=== PATIENT | female | born 1990 | race Caucasian/White ===

== ENCOUNTER 2016-09-23 10:21 | Emergency (ER) | payer MEDICAID, OTHER ==
[~2016-09-23] VITALS: Ht 157.5 cm; Wt 125.0 kg
[~2016-09-23 10:21] MED LIST: PERC5TAB12 PO
[2016-09-23 10:23] VITALS: BP 115/76; PULSE 76; RESP 20; TEMP 97.7; O2SAT 100
[2016-09-23 10:30] VITALS: BP 115/76; PULSE 76; RESP 20; TEMP 97.7; O2SAT 100
--- NOTE | 2016-09-23 10:36 | PD ---
HPI Chief Complaint: Cold / Flu Symptoms Time Seen by Provider: 10:30 Travel History International Travel<30 days: No Contact w/Intl Traveler<30days: No Traveled to known affect area: No History of Present Illness HPI This is a 25-year-old female who is but doesn't know how far along who presents to the emergency department with nonproductive cough, rhinorrhea, not feeling well for 2-3 days feeling like she has a cold, and when she went to work today she felt like she was going to pass out and got dizzy so she came to the emergency department. Currently she continues to feel somewhat lightheaded. She denies any vaginal bleeding or abdominal pain. PFSH Past Medical History Cancer: No Cardiovascular Problems: No Diminished Hearing: No Endocrine: No Genitourinary: No Immune Disorder: No Musculoskeletal: Yes Neurologic: Yes Psychiatric: No Reproductive: No Respiratory: No Immunizations Current: Yes Migraines: Yes ?: LMP: 05/2016 : 2 Para: 1 Miscarriage: 1 : 0 Social History Alcohol Use: No Tobacco Use: No Substance Use: No Allergies-Medications (Allergen,Severity, Reaction): Coded Allergies: Sulfa (Verified Allergy, Intermediate, Hives, 09/23/16) Uncoded Allergies: CONTROL PILL (Allergy, Mild, RASH, 07/02/12) Reported Meds & Prescriptions Reported Meds & Active Scripts Active No Active Prescriptions or Reported Medications Review of Systems Except as stated in HPI: all other systems reviewed are Neg Physical Exam Narrative GENERAL: Well-nourished, well-developed patient. SKIN: Warm and dry. HEAD: Normocephalic. EYES: No scleral icterus. No injection or drainage. ENT: Rhinorrhea, no posterior pharyngeal erythema or exudates. NECK: Supple, trachea midline. CARDIOVASCULAR: Regular rate and rhythm without murmurs. RESPIRATORY: Breath sounds equal bilaterally. No accessory muscle use. GASTROINTESTINAL: Abdomen soft, non-tender, nondistended. MUSCULOSKELETAL: No cyanosis, or edema. Data Data Last Documented VS Vital Signs Date Time Temp Pulse Resp B/P Pulse Ox O2 Delivery O2 Flow Rate FiO2 09/23/16 10:35 76 20 100 09/23/16 10:30 97.7 115/76 09/23/16 10:23 Room Air Orders Complete Blood Count With Diff (09/23/16 10:34) Basic Metabolic Panel (Bmp) (09/23/16 10:34) ^ Insert Iv (09/23/16 10:34) Sodium Chlor 0.9% 1000 Ml Inj (Ns 1000 M (09/23/16 10:45) Beta Hcg (Quant/Titer) (09/23/16 10:34) Electrocardiogram (09/23/16 ) Ed Poc Ultrasound (09/23/16 10:36) Labs Laboratory Tests Test 09/23/16 10:41 White Blood Count 7.9 TH/MM3 Red Blood Count 4.68 MIL/MM3 Hemoglobin 12.8 GM/DL Hematocrit 38.6 % Mean Corpuscular Volume 82.5 FL Mean Corpuscular Hemoglobin 27.3 PG Mean Corpuscular Hemoglobin 33.0 % Concent Red Cell Distribution Width 13.8 % Platelet Count 289 TH/MM3 Mean Platelet Volume 7.8 FL Neutrophils (%) (Auto) 63.3 % Lymphocytes (%) (Auto) 24.2 % Monocytes (%) (Auto) 8.4 % Eosinophils (%) (Auto) 3.6 % Basophils (%) (Auto) 0.5 % Neutrophils # (Auto) 5.0 TH/MM3 Lymphocytes # (Auto) 1.9 TH/MM3 Monocytes # (Auto) 0.7 TH/MM3 Eosinophils # (Auto) 0.3 TH/MM3 Basophils # (Auto) 0.0 TH/MM3 CBC Comment DIFF FINAL Differential Comment Sodium Level 136 MEQ/L Potassium Level 3.6 MEQ/L Chloride Level 102 MEQ/L Carbon Dioxide Level 28.6 MEQ/L Anion Gap 5 MEQ/L Blood Urea Nitrogen 7 MG/DL Creatinine 0.60 MG/DL Estimat Glomerular Filtration 121 ML/MIN Rate Random Glucose 85 MG/DL Calcium Level 8.9 MG/DL Human Chorionic Gonadotropin, [address] MIU/ML Quant MDM Medical Decision Making Medical Screen Exam Complete: Yes Emergency Medical Condition: Yes Interpretation(s) Afebrile, no tachycardia, normotensive No leukocytosis Electrolytes within normal limits HCG is 70,000 Differential Diagnosis Ectopic , intrauterine , dehydration, viral syndrome Narrative Course This is a 25-year-old female who presents to the emergency department with dizziness and lightheadedness in the setting of upper respiratory symptoms. Patient is nontoxic appearing. She was placed on a monitor and labs were obtained. Labs were all reassuring. She was given IV hydration. Bedside ultrasound confirms an intrauterine with a normal heart rate. Patient was prescribed Mucinex and ipratropium nasal spray for cold symptoms and told to follow up with an outpatient logistical engineer. Procedures Procedure Narrative Pelvic ultrasound: Intrauterine with a heart rate of 167 was identified Diagnosis Primary Impression: Viral upper respiratory infection Additional Impression: Qualified Code: Z3A.01 - Less than 8 weeks gestation of Patient Instructions: General Instructions Additional Instructions: If you develop severe abdominal pain, vaginal bleeding, lightheadedness or dizziness return to the emergency room. Med/Other Pt SpecificInfo: Prescription(s) given Scripts Without A W/ Fe Fumar (Pnv-Dha 27-0.6-0.4-300 mg)1 Cap Cap1 Tab PO DAILY 30 Days Prov:Guillermina Montgomery MD 09/23/16 Guaifenesin ER 12 HR (Mucinex ER 12 HR)600 Mg [id number] Mg PO BID #20 TAB Ref 0 Prov:Guillermina Montgomery MD 09/23/16 Ipratropium Nasal 0.06% Spray1 [place] EACH NARE TID #1 BOTTLE Ref 0 Prov:Guillermina Montgomery MD 09/23/16 Disposition: 01 DISCHARGE HOME Condition: Stable Guillermina Montgomery MD Sep 23, 2016 10:36
[2016-09-23] MEDS ORDERED: SODIUM CHLOR 0.9% 1000 ML INJ 1,000 ML IV ONE (10:45)
[2016-09-23 10:52] LABS: BASOPHIL % 0.5 % (0.0-2.0); EOSINOPHIL # 0.3 TH/MM3 (0-0.4); EOSINOPHIL % 3.6 % (0.0-4.0); HEMATOCRIT 38.6 % (35.0-46.0); HEMO FLAGS DIFF FINAL; LYMPH % 24.2 % (9.0-44.0); LYMPHOCYTE # 1.9 TH/MM3 (1.0-4.8); MEAN CELL VOLUME 82.5 FL (80.0-100.0); MEAN CORPUSCULAR HEMOGLOBIN 27.3 PG (27.0-34.0); MONO % 8.4 % (0.0-8.0); NEUT % 63.3 % (16.0-70.0); PLATELET COUNT 289 TH/MM3 (150-450); RED BLOOD COUNT 4.68 MIL/MM3 (4.00-5.30); RED CELL DISTRIBUTION WIDTH 13.8 % (11.6-17.2); WHITE BLOOD COUNT 7.9 TH/MM3 (4.0-11.0)
[2016-09-23 11:09] LABS: BICARBONATE 28.6 MEQ/L (21.0-32.0); POTASSIUM 3.6 MEQ/L (3.5-5.1)
[2016-09-23] MEDS ORDERED: PNV-CAP PO (11:31)
[2016-09-23] MEDS ORDERED: IPRA0.06 EACH NARE (11:31)
[2016-09-23] MEDS ORDERED: MUCI600T PO (11:31)
--- NOTE | 2016-09-23 19:17 | EKG ---
Date Performed: 09/23/2016 Time Performed: 10:47:05 PTAGE: 25 years EKG: Sinus rhythm NORMAL ECG NO PREVIOUS TRACING DOCTOR: Db Shrestha Interpretating Date/Time 09/23/2016 19:15:22
== END 2016-09-23 12:01 | disposition home or self-care (01) ==
LOC: NEPE 10:21
DX: O26.891 Other specified pregnancy related conditions, first trimester (principal); J06.9 Acute upper respiratory infection, unspecified; B97.89 Other viral agents as the cause of diseases classified elsewhere; R05 Cough; R42 Dizziness and giddiness; Z87.39 Personal history of other diseases of the musculoskeletal system and connective tissue; Z86.69 Personal history of other diseases of the nervous system and sense organs; Z3A.01 Less than 8 weeks gestation of pregnancy
CPT/HCPCS: 80048; 84702; 85025; 93005; 96360; 99283; J7030

== ENCOUNTER 2016-11-07 22:34 | Emergency (ER) | payer MEDICAID ==
[~2016-11-07] VITALS: Ht 157.5 cm; Wt 122.0 kg
[~2016-11-07 22:34] MED LIST changes: +IPRA0.06 EACH NARE; +MUCI600T PO; -PERC5TAB12 PO; +PNV-CAP PO
[2016-11-07 22:36] VITALS: BP 120/59; PULSE 93; RESP 16; TEMP 98.3; O2SAT 95
[2016-11-07 23:27] LABS: BACTERIA, URINE FEW /hpf; BLOOD, URINE LARGE (NEG); COMMENT (UR) CULTURE INDICATED; CULTURE IF INDICATED CULTURE INDICATED; GLUCOSE,URINE NEG (NEG); KETONE, URINE 40 mg/dL (NEG); MUCUS URINE MOD /lpf (OCC); NITRITE,URINE NEG (NEG); RENAL EPITHELIAL CELLS 19 /hpf; URINE COLOR RED (YELLW/STRAW)
[2016-11-08] MEDS ORDERED: LIDOCAINE HCL 1% 20 ML VIAL INFIL ONE (00:30)
[2016-11-08] MEDS ORDERED: MACR100C2 PO (00:30)
--- NOTE | 2016-11-08 00:35 | PD ---
HPI Chief Complaint: Complaint Time Seen by Provider: 00:30 Travel History International Travel<30 days: No Contact w/Intl Traveler<30days: No Traveled to known affect area: No History of Present Illness HPI 26-year-old white female with a 12 week estimated gestational age IUP presents with a one-day history of increased urinary frequency, dysuria, urgency or hematuria. She denies any back pain. No nausea vomiting. No abdominal pain or pelvic pain. No leakage of fluid or vaginal bleeding. No abnormal discharge. No fever or chills. She states that these are the same symptoms that she has had in the past of urinary tract infections. PFSH Past Medical History Narrative Medical uti Cancer: No Cardiovascular Problems: No Diminished Hearing: No Endocrine: No Gastrointestinal Disorders: Yes Genitourinary: No Immune Disorder: No Musculoskeletal: Yes Neurologic: Yes Psychiatric: No Reproductive: No Respiratory: No Immunizations Current: Yes Migraines: Yes Tetanus Vaccination: < 5 Years (i.) ?: LMP: 12 WEEKS : 2 Para: 1 Miscarriage: 1 : 0 Past Surgical History Narrative Surgical Cholecystectomy Cholecystectomy: Yes Social History Alcohol Use: No Tobacco Use: No Substance Use: No Allergies-Medications (Allergen,Severity, Reaction): Coded Allergies: Sulfa (Verified Allergy, Intermediate, Hives, 11/07/16) Uncoded Allergies: CONTROL PILL (Allergy, Mild, RASH, 07/02/12) Reported Meds & Prescriptions Reported Meds & Active Scripts Active Pnv-Dha 27-0.6-0.4-300 mg ( Without A W/ Fe Fumar) 1 Cap Cap 1 Tab PO DAILY 30 Days Mucinex ER 12 HR (Guaifenesin) 600 Mg Mikhail 600 Mg PO BID Ipratropium Nasal 0.06% Onset 1 Onset EACH NARE TID Review of Systems Except as stated in HPI: all other systems reviewed are Neg Physical Exam Narrative GENERAL: Well-developed, well-nourished in no acute distress. Nontoxic appearing. HEAD: Normocephalic, atraumatic. EYES: Pupils equal round and reactive. Extraocular motions intact. No scleral icterus. No injection or drainage. ENT: TMs clear without erythema. The external auditory canals clear. Nose: clear . Posterior pharynx is pink and moist. No tonsillar edema or exudate. Uvula midline. Airway patent. NECK: Trachea midline.Supple, nontender, moves head freely. No central bony tenderness or spasm. CARDIOVASCULAR: Regular rate and rhythm without murmurs, gallops, or rubs. RESPIRATORY: Clear to auscultation. Breath sounds equal bilaterally. No wheezes , rales, or rhonchi. GASTROINTESTINAL: Abdomen soft, non-tender, nondistended. No hepato-splenomegaly , or palpable masses. No guarding. EXTREMITIES: No clubbing, cyanosis, or edema. No joint tenderness, effusion, or edema noted. BACK: Nontender without deformity or crepitance. No flank tenderness. Data Data Last Documented VS Vital Signs Date Time Temp Pulse Resp B/P Pulse Ox O2 Delivery O2 Flow Rate FiO2 11/07/16 22:36 98.3 93 16 120/59 95 Room Air Orders Urinalysis - C+S If Indicated (11/07/16 22:59) Urine Culture (11/07/16 23:01) Ceftriaxone Inj (Rocephin Inj) (11/08/16 00:30) Lidocaine 1% Inj (Xylocaine 1% Inj) (11/08/16 00:30) Labs Laboratory Tests Test 11/07/16 23:01 Urine Color RED Urine Turbidity CLOUDY Urine pH 6.0 Urine Specific Preston 1.022 Urine Protein 300 mg/dL Urine Glucose (UA) NEG mg/dL Urine Ketones 40 mg/dL Urine Occult Blood LARGE Urine Nitrite NEG Urine Bilirubin NEG Urine Urobilinogen LESS THAN 2.0 MG/DL Urine Leukocyte Esterase LARGE Urine RBC /hpf Urine WBC /hpf Urine WBC Clumps MANY Urine Renal Epithelial Cells 19 /hpf Urine Bacteria FEW /hpf Urine Mucus MOD /lpf Microscopic Urinalysis Comment CULTURE INDICATED MDM Medical Decision Making Medical Screen Exam Complete: Yes Emergency Medical Condition: Yes Medical Record Reviewed: Yes Interpretation(s) Laboratory Tests Test 11/07/16 23:01 Urine Color RED Urine Turbidity CLOUDY Urine pH 6.0 Urine Specific Preston 1.022 Urine Protein 300 mg/dL Urine Glucose (UA) NEG mg/dL Urine Ketones 40 mg/dL Urine Occult Blood LARGE Urine Nitrite NEG Urine Bilirubin NEG Urine Urobilinogen LESS THAN 2.0 MG/DL Urine Leukocyte Esterase LARGE Urine RBC /hpf Urine WBC /hpf Urine WBC Clumps MANY Urine Renal Epithelial Cells 19 /hpf Urine Bacteria FEW /hpf Urine Mucus MOD /lpf Microscopic Urinalysis Comment CULTURE INDICATED Differential Diagnosis Differential diagnoses: Pyelonephritis, UTI, vaginitis Narrative Course Patient is urine is positive for UTI. Patient's given Rocephin 1 g IM. There is no evidence of pyelonephritis at this time. She has an appointment to see her OB doctor for the first visit next week. She is advised to return to the ER over the weekend if any problems develop. This is UTI, Diagnosis Primary Impression: UTI (urinary tract infection) Qualified Code: N30.01 - Acute cystitis with hematuria Additional Impression: Qualified Code: Z3A.12 - 12 weeks gestation of Patient Instructions: General Instructions Additional Instructions: Rest. Increase fluids. Macrobid. Follow-up with OB doctor next week as scheduled. Return to the ER for any problems. Med/Other Pt SpecificInfo: Prescription(s) given Scripts Nitrofurantoin Monohydrate Macrocrystals (Macrobid)100 Mg [id number] Mg PO BID #20 CAP Prov:Carmita Ragland MD 11/08/16 Disposition: 01 DISCHARGE HOME Condition: Stable Myke Rojas Nov 08, 2016 00:35
[2016-11-08] MEDS ORDERED: LIDOCAINE HCL 1% 50 ML VIAL INFIL ONE (01:00)
== END 2016-11-08 01:21 | disposition home or self-care (01) ==
LOC: NEPB 22:34
DX: O23.11 Infections of bladder in pregnancy, first trimester (principal); B96.20 Unspecified Escherichia coli [E. coli] as the cause of diseases classified elsewhere; Z3A.12 12 weeks gestation of pregnancy
CPT/HCPCS: 81001; 87077; 87086; 87186; 96372; 99283; J0696

== ENCOUNTER 2016-12-03 18:13 | Emergency (ER) | payer MEDICAID ==
[~2016-12-03] VITALS: Ht 157.5 cm; Wt 120.0 kg
[~2016-12-03 18:13] MED LIST changes: +MACR100C2 PO
[2016-12-03] MEDS ORDERED: AMOXICILLIN/CLAVULANATE K 875 MG TAB PO ONE (19:30)
[2016-12-03] MEDS ORDERED: ACETAMINOPHEN 500 MG CPLT PO ONE (19:30)
--- NOTE | 2016-12-03 19:35 | PD ---
HPI Chief Complaint: Bite or Sting Time Seen by Provider: 19:31 Travel History International Travel<30 days: No Contact w/Intl Traveler<30days: No Traveled to known affect area: No History of Present Illness HPI Patient comes in complaining of dog bite it is causing pain to the right hand that occurred shortly prior to arrival. Patient states the dog was one of her neighbors that was chained up and managed to bite her right hand anyway. Patient reports her tetanus shot is up-to-date. Patient is uncertain of the dog 's vaccination status as she does not know the neighbors that own the dog. Patient states that she put Neosporin on her hand prior to coming to the emergency department. Denies anything else for this. Patient reports pain over the second distal metatarsal on the dorsal aspect is worse with movement of her second digit. Denies any radiation of the pain. Patient reports that she is approximately 15 weeks . PFSH Past Medical History Cancer: No Cardiovascular Problems: No Diminished Hearing: No Endocrine: No Gastrointestinal Disorders: Yes Genitourinary: No Immune Disorder: No Musculoskeletal: Yes Neurologic: Yes Psychiatric: No Reproductive: No Respiratory: No Immunizations Current: Yes Migraines: Yes ?: : 2 Para: 1 Miscarriage: 1 : 0 Past Surgical History Cholecystectomy: Yes Social History Alcohol Use: No Tobacco Use: No Substance Use: No Allergies-Medications (Allergen,Severity, Reaction): Coded Allergies: Sulfa (Verified Allergy, Intermediate, Hives, 12/03/16) Uncoded Allergies: CONTROL PILL (Allergy, Mild, RASH, 07/02/12) Reported Meds & Prescriptions Reported Meds & Active Scripts Active Augmentin (Amoxicillin-Clavulanate) 875-125 mg Tab 875 Mg PO BID 10 Days not for use in CrCl <30 ml/min. Pnv-Dha 27-0.6-0.4-300 mg ( Without A W/ Fe Fumar) 1 Cap Cap 1 Tab PO DAILY 30 Days Review of Systems Except as stated in HPI: all other systems reviewed are Neg Physical Exam Narrative GENERAL: Well-developed, overly nourished, in no acute distress, and non-ill appearing. SKIN: Warm and dry. Approximately 4 superficial bite wounds noted dorsal aspect of right hand with a small contusion noted over the second metacarpal. Patient is neurovascularly intact distally and has full range of motion. HEAD: Atraumatic. Normocephalic. EYES: Pupils equal and round. EOMI. No scleral icterus. No injection or drainage. ENT: No nasal bleeding or discharge. Mucous membranes pink and moist. NECK: Trachea midline. Supple. No nuclear rigidity. CARDIOVASCULAR: Radial pulses 2+, intact, and equal bilaterally. Capillary refill less than 2 seconds. RESPIRATORY: No accessory muscle use. No respiratory distress. MUSCULOSKELETAL: No obvious deformities. No clubbing. No cyanosis. No edema. Full range of motion. Wrist: FROM and equal BL with passive flexion, extension, and pronation/supination. Capillary refill less than 2 seconds distal to injury and equal BL. FROM distal to injury and equal BL. Strength distal to injury equal BL. NV intact distal to injury. Flexion and extension of thumb equal BL. Equal strength and movement with abduction/adductions of BL fingers. Communication Consultant strength equal BL. No tenderness to the anatomical snuffbox. NEUROLOGICAL: Awake and alert. No obvious cranial nerve deficits. Motor grossly within normal limits. Normal speech. PSYCHIATRIC: Appropriate mood and affect; insight and judgment normal. Data Data Last Documented VS Vital Signs Date Time Temp Pulse Resp B/P Pulse Ox O2 Delivery O2 Flow Rate FiO2 12/03/16 20:41 16 12/03/16 19:52 98.3 89 103/51 98 Room Air Orders Hand, Complete ([id number]) (12/03/16 ) Ice/Cold Pack (12/03/16 19:30) Acetaminophen (Tylenol) (12/03/16 19:30) Amoxicil-Clavulanate (Augmentin) (12/03/16 19:30) [facility] Medical Decision Making Medical Screen Exam Complete: Yes Emergency Medical Condition: Yes Interpretation(s) X-ray was obtained and reviewed. Shows no acute osseous abnormalities or radiopaque foreign body. Radiologist to over read. Differential Diagnosis Fracture, animal bite, laceration, abrasion, retained foreign body, other Narrative Course Patient states that she has an appointment with her OB tomorrow and wants to wait and discuss rabies prophylaxis with her as OB as well as an trying to find out from her neighbor if the dog's rabies are up to date. The patient suffered animal bite wound. The animal is domesticated and the animal can be watched. There is no evidence of deep tissue involvement and/or local tendon involvement. There was no evidence to suggest foreign bodies. Visual and tactile exams were unremarkable. There was no evidence of neurovascular injury as well. The patients wounds were irrigated copiously and cleaned. Rabies prophylaxis was discussed with the patient and exposure appears low risk and is wanting to wait and discuss with her OB tomorrow. Patient was informed there is no contraindication to receiving rabies prophylaxis in , however she still wants to wait and discuss with her OB first. The patient was given signs and symptom warnings for infection, such as increasing pain, pain with movement of involved extremity,redness, swelling, associated heat, pus or fever. The patient was given antibiotics to cover mouth brayan and instructions for timely follow up for wound recheck. The patient agreed with plan of care. Animal control was contacted per hospital protocol. Patient in no obvious distress upon re-evaluation. All pertinent Radiology result(s) discussed with patient. Patient was asked if they wanted to speak to my attending, which the patient did not wish to do at this time. Any questions/ concerns in reference to patient diagnosis/condition discussed and clarified prior to patient's discharge. Reinforced sheer importance of close follow up with patient's primary physician or primary care clinic. Instructed patient to return to ED immediately, if symptoms return/worsen. Pt showed understanding of above instructions. Further instructions and recommendations were detailed in discharge paperwork. Pt ambulated without difficulty out of ED at discharge. Procedures Procedure Narrative Verbal consent was obtained. Wounds were cleaned and irrigated using copious amounts of normal saline. Patient tolerated procedure well. There was no complications. Diagnosis Primary Impression: Dog bite Qualified Code: W54.0XXA - Dog bite, initial encounter Referrals: [facility] Dept. Patient Instructions: Animal Bite (ED), General Instructions, Rabies (ED), Rabies Immune Globulin (By injection), Rabies Vaccine (By injection) Additional Instructions: Follow-up with your OB tomorrow as scheduled. If you decided to start the rabies prophylaxis to the health Department tomorrow or you may return to the emergency department. Take all medication as prescribed. Use [id number] Tylenol as needed for pain. Follow instructions on the package. Apply ice to affected area 20 minutes per hour as needed for pain and swelling. Return to the emergency department if symptoms get worse. Med/Other Pt SpecificInfo: Prescription(s) given Scripts Amoxicillin-Clavulanate (Augmentin)875-125 mg [id number] Mg PO BID 10 Days Ref 0 not for use in CrCl <30 ml/min. Prov:Corina Michael MD 12/03/16 Disposition: 01 DISCHARGE HOME Condition: Stable Alcon Vieira Dec 03, 2016 19:35
[2016-12-03 19:52] VITALS: BP 103/51; PULSE 89; RESP 16; TEMP 98.3; O2SAT 98
[2016-12-03] MEDS ORDERED: AUGM875T PO (20:13)
[2016-12-03 20:41] VITALS: RESP 16
--- NOTE | 2016-12-03 21:31 | RADRPT ---
EXAM DATE/TIME: 12/03/2016 19:58 [facility] COMPARISON: No previous studies available for comparison. INDICATIONS : Right hand trauma. Patient was bite by a dog. MEDICAL HISTORY : None. SURGICAL HISTORY : None. ENCOUNTER: Initial ACUITY: 1 day PAIN SCORE: 8/10 LOCATION: Right hand. FINDINGS: Three view examination of the right hand demonstrates no soft tissue swelling, dislocation, or fractu re. The carpal bones appear intact. The interphalangeal and metacarpophalangeal joints are intact. Bony mineralization is normal. CONCLUSION: No acute disease. Heraclio Mattson MD on December 03, 2016 at 21:28 Board Certified Radiologist. This report was verified electronically.
== END 2016-12-03 22:22 | disposition home or self-care (01) ==
LOC: NETRI 18:13
DX: S60.571A Other superficial bite of hand of right hand, initial encounter (principal); W54.0XXA Bitten by dog, initial encounter
CPT/HCPCS: 73130; 99283